=== PATIENT | female | born 1990 | race Caucasian/White ===

== ENCOUNTER 2017-01-20 00:28 | Emergency (ER) | payer MEDICAID, OTHER ==
[~2017-01-20] VITALS: Ht 152.4 cm; Wt 113.9 kg
[~2017-01-20 00:28] MED LIST: ACET325 PO; AMOX500T PO; IBUP800T23 PO; PERC5TAB12 PO
[2017-01-20 00:34] VITALS: BP 143/76; PULSE 74; RESP 20; TEMP 97.5; O2SAT 98
--- NOTE | 2017-01-20 01:47 | PD ---
HPI Chief Complaint: Bleeding Time Seen by Provider: 01:39 Travel History International Travel<30 days: No Contact w/Intl Traveler<30days: No Traveled to known affect area: No History of Present Illness HPI The patient is a 27-year-old female, G2, P2, A0 that has had vaginal bleeding for over a month. She states it has been worse the last 3 days. She has Medicaid and does not have a product delivery specialist. Her last missed her period was 3 years ago, she has irregular periods. She is not on any contraception. She states there is a possibility of . PFSH Past Medical History Asthma: Yes Heart Rhythm Problems: Yes ("HEART SPEEDS UP OR SLOWS DOWN") Tetanus Vaccination: Never Vaccinated ?: Not LMP: 2013 : 2 Para: 2 Past Surgical History Tonsillectomy: Yes Social History Alcohol Use: No Tobacco Use: No Substance Use: No Allergies-Medications (Allergen,Severity, Reaction): Coded Allergies: Phenergan (Verified Allergy, Severe, Anaphylaxis, 01/20/17) FACE AND THROAT CLOSES UP WITH SWELLING Reported Meds & Prescriptions Reported Meds & Active Scripts Active Review of Systems Except as stated in HPI: all other systems reviewed are Neg Physical Exam Narrative GENERAL: The patient is alert, nonanemic appearing, obese, oriented 3 in no apparent distress. SKIN: Focused skin assessment warm/dry. No skin bruising is seen. HEAD: Atraumatic. Normocephalic. EYES: Pupils equal and round. No scleral icterus. No injection or drainage. ENT: No nasal bleeding or discharge. Mucous membranes pink and moist. NECK: Trachea midline. No JVD. CARDIOVASCULAR: Regular rate and rhythm. No murmur appreciated. RESPIRATORY: No accessory muscle use. Clear to auscultation. Breath sounds equal bilaterally. GASTROINTESTINAL: Abdomen soft, non-tender, nondistended. Hepatic and splenic margins not palpable. No guarding or rebound is present. MUSCULOSKELETAL: No obvious deformities. No clubbing. No cyanosis. No edema. NEUROLOGICAL: Awake and alert. No obvious cranial nerve deficits. Motor grossly within normal limits. Normal speech. PSYCHIATRIC: Appropriate mood and affect; insight and judgment normal. GENITOURINARY: Normal external genitalia without lesions or erythema. Vaginal vault with blood but no other drainage. Cervical os was closed with bloody drainage. No cervical motion tenderness. Uterus nontender and nonenlarged. Bilateral adnexa nontender without masses. Data Data Last Documented VS Vital Signs Date Time Temp Pulse Resp B/P Pulse Ox O2 Delivery O2 Flow Rate FiO2 01/20/17 02:19 82 16 104/53 97 Room Air 01/20/17 00:34 97.5 Orders Beta Hcg (Quant/Titer) (01/20/17 01:39) Complete Blood Count With Diff (01/20/17 01:39) Basic Metabolic Panel (Bmp) (01/20/17 01:39) Urinalysis - C+S If Indicated (01/20/17 01:39) Labs Laboratory Tests Test 01/20/17 01:59 White Blood Count 9.8 TH/MM3 Red Blood Count 4.35 MIL/MM3 Hemoglobin 12.2 GM/DL Hematocrit 36.7 % Mean Corpuscular Volume 84.5 FL Mean Corpuscular Hemoglobin 28.1 PG Mean Corpuscular Hemoglobin 33.3 % Concent Red Cell Distribution Width 12.5 % Platelet Count 385 TH/MM3 Mean Platelet Volume 7.8 FL Neutrophils (%) (Auto) 59.5 % Lymphocytes (%) (Auto) 28.7 % Monocytes (%) (Auto) 6.5 % Eosinophils (%) (Auto) 4.0 % Basophils (%) (Auto) 1.3 % Neutrophils # (Auto) 5.9 TH/MM3 Lymphocytes # (Auto) 2.8 TH/MM3 Monocytes # (Auto) 0.6 TH/MM3 Eosinophils # (Auto) 0.4 TH/MM3 Basophils # (Auto) 0.1 TH/MM3 CBC Comment DIFF FINAL Differential Comment Sodium Level 141 MEQ/L Potassium Level 3.8 MEQ/L Chloride Level 105 MEQ/L Carbon Dioxide Level 27.5 MEQ/L Anion Gap 9 MEQ/L Blood Urea Nitrogen 15 MG/DL Creatinine 0.73 MG/DL Estimat Glomerular Filtration 97 ML/MIN Rate Random Glucose 95 MG/DL Calcium Level 9.2 MG/DL Human Chorionic Gonadotropin, LESS THAN 1 Quant MIU/ML [facility] Medical Decision Making Medical Screen Exam Complete: Yes Emergency Medical Condition: Yes Medical Record Reviewed: Yes Interpretation(s) The basic metabolic profile is normal and the beta-hCG is less than 1. The CBC is completely normal, the hemoglobin is 12.2. Differential Diagnosis Dysfunctional uterine bleeding, uterine fibroids, anemia, electrolyte disorder, coagulopathyunlikely, intrauterine , ectopic , threatened AB Narrative Course The patient has dysfunctional uterine bleeding. She is not anemic and the bleeding is minimal. Plan: She is to follow-up with a product delivery specialist. Diagnosis Primary Impression: Dysfunctional uterine bleeding Additional Instructions: As we discussed, follow-up with a product delivery specialist. The bleeding is minimal, not causing you to come anemic. You are not . Usually, this is a hormonal problem in her product delivery specialist can work it up for problems to not only stop the bleeding but have you start regular menstrual periods. Med/Other Pt SpecificInfo: No Change to Meds Disposition: 01 DISCHARGE HOME Condition: Stable Efrain Hurley MD Jan 20, 2017 01:47
[2017-01-20 02:07] LABS: AUTOMATED NEUTROPHIL # 5.9 TH/MM3 (1.8-7.7); BASOPHIL # 0.1 TH/MM3 (0-0.2); BASOPHIL % 1.3 % (0.0-2.0); EOSINOPHIL # 0.4 TH/MM3 (0-0.4); HEMATOCRIT 36.7 % (35.0-46.0); HEMO FLAGS DIFF FINAL; LYMPH % 28.7 % (9.0-44.0); LYMPHOCYTE # 2.8 TH/MM3 (1.0-4.8); MEAN CELL VOLUME 84.5 FL (80.0-100.0); MEAN CORPUSCULAR HEMOGLOBIN 28.1 PG (27.0-34.0); MEAN CORPUSCULAR HGB CONC 33.3 % (32.0-36.0); MONO % 6.5 % (0.0-8.0); NEUT % 59.5 % (16.0-70.0); PLATELET COUNT 385 TH/MM3 (150-450); RED BLOOD COUNT 4.35 MIL/MM3 (4.00-5.30); RED CELL DISTRIBUTION WIDTH 12.5 % (11.6-17.2); WHITE BLOOD COUNT 9.8 TH/MM3 (4.0-11.0)
[2017-01-20 02:13] LABS: CHLORIDE 105 MEQ/L (98-107); POTASSIUM 3.8 MEQ/L (3.5-5.1); SODIUM (NA) 141 MEQ/L (136-145)
[2017-01-20 02:16] LABS: ANION GAP 9 MEQ/L (5-15); BICARBONATE 27.5 MEQ/L (21.0-32.0); BLOOD UREA NITROGEN 15 MG/DL (7-18)
[2017-01-20 02:19] VITALS: BP 104/53; PULSE 82; RESP 16; O2SAT 97
[2017-01-20 02:19] LABS: GLOMERULAR FILTRATION RATE 97 ML/MIN (>89)
[2017-01-20 02:24] LABS: BETA HCG QUANT LESS THAN 1 MIU/ML (0-5)
== END 2017-01-20 02:46 | disposition home or self-care (01) ==
LOC: PHED 00:28
DX: N93.8 Other specified abnormal uterine and vaginal bleeding (principal)
CPT/HCPCS: 80048; 84702; 85025; 99284